=== PATIENT | female | born 1955 | race Caucasian/White ===

== ENCOUNTER 2016-11-04 09:51 | Outpatient (CLI) | payer OTHER | END 2016-11-04 09:52 | disposition home or self-care (01) | DX: Z12.31 Encounter for screening mammogram for malignant neoplasm of breast (principal) ==

== ENCOUNTER 2018-07-16 09:43 | Outpatient (CLI) | payer OTHER ==
--- NOTE | 2018-07-16 11:06 | XRAY Report ---
Reason: CHRONIC CERVICALGIA Procedure Date: 07/16/2018 Accession Number: [id number] / [id number] Procedure: XR - Cervical Spine Complete CPT Code: FULL RESULT: EXAM: CERVICAL SPINE RADIOGRAPHY EXAM DATE: 07/16/2018 10:25 AM. CLINICAL HISTORY: Chronic cervicalgia. COMPARISONS: None. TECHNIQUE: 5 views. FINDINGS: Alignment: Normal. No spondylolisthesis or scoliosis. Bones: The cervical vertebral bodies and posterior elements are well-visualized from the skull base through C7-T1. No fractures or bone lesions. Disks: There is loss of disk space height at C5-C7. Facets: No degenerative disease. Neural Foramina: The neural foramina have bony patency bilaterally. Soft Tissues: Normal. No prevertebral soft tissue swelling. The visualized lung apices are clear. IMPRESSION: Mild degenerative changes. RADIA
--- NOTE | 2018-07-16 11:09 | XRAY Report ---
Reason: CHRONIC CERVICALGIA Procedure Date: 07/16/2018 Accession Number: [id number] / [id number] Procedure: XR - Thoracic Spine 2 View CPT Code: FULL RESULT: EXAM: THORACIC SPINE RADIOGRAPHY EXAM DATE: 07/16/2018 10:25 AM. CLINICAL HISTORY: Chronic cervicalgia. COMPARISON: None. TECHNIQUE: 2 views. FINDINGS: Alignment: Mild thoracic kyphosis. Bones: No fractures or bone lesions. Disks: Normal. Disk heights are maintained. Soft Tissues: Normal. The visualized lungs and cardiomediastinal silhouette are normal. IMPRESSION: Mild thoracic kyphosis without focal compression fracture. RADIA
== END 2018-07-16 09:44 | disposition home or self-care (01) ==
LOC: DI 09:43
PROVIDERS: ATTEND Nurse Practitioner Family
DX: M50.322 Other cervical disc degeneration at C5-C6 level (principal); M40.204 Unspecified kyphosis, thoracic region
CPT/HCPCS: 72050; 72070

== ENCOUNTER 2020-08-25 14:49 | Outpatient (CLI) | payer OTHER ==
--- NOTE | 2020-08-26 10:06 | Mammography Report ---
BILATERAL DIGITAL SCREENING MAMMOGRAM 3D/2D WITH EXAGGERATED CC: 08/25/2020 CLINICAL: Routine screening. Routine screening. Comparison is made to exams dated: 11/04/2016 mammogram - [facility], 08/21/2015 [facility], 08/12/2014 mammogram, and 08/13/2013 mammogram - [facility]. The tissue of both breasts is predominantly fatty. There is a stable benign focal asymmetry in the right breast. No significant masses, calcifications, or other findings are seen in either breast. There has been no significant interval change. IMPRESSION: BENIGN There is no mammographic evidence of malignancy. A 1 year screening mammogram is recommended. This exam was interpreted at Station ID: [id number]. NOTE: For mammograms, a report in lay terms will be sent to the patient. Approximately 15% of breast malignancies will not be visualized mammographically. In the management of a palpable breast mass, a negative mammogram must not discourage biopsy of a clinically suspicious lesion. Electronically Signed By: Madi Cruz acr/penrad:08/25/2020 16:35:18 ACR BI-RADS Category 2: Benign Finding(s) 3342F PARENCHYMAL PATTERN: (F) - The breast(s) demonstrate(s) diffuse fatty replacement. BI-RADS CATEGORY: (2) - 2 RECOMMENDATION: (ANNUAL) - Recommend routine annual screening mammography. [id number] 1 year screening LATERALITY: (B)
== END 2020-08-25 14:50 | disposition home or self-care (01) ==
LOC: DI.S 14:49
PROVIDERS: ATTEND Nurse Practitioner Family
DX: Z12.31 Encounter for screening mammogram for malignant neoplasm of breast (principal)

== ENCOUNTER 2020-08-28 12:42 | Outpatient (CLI) | payer OTHER ==
--- NOTE | 2020-08-28 13:29 | XRAY Report ---
PROCEDURE: Shoulder 3 View LT INDICATIONS: LEFT SHOULDER PAIN TECHNIQUE: 3 views of the shoulder were acquired. COMPARISON: None. FINDINGS: No fracture. Anatomic alignment. Scattered subchondral sclerosis and spurring. Soft tissues: No torrez spicious soft tissue calcifications. IMPRESSION: Degenerative changes as above. If the patient's pain or other symptoms persist, consider further evaluation with MRI. Reviewed by: Tito Armstrong MD on 08/28/2020 1:28 PM [facility] Approved by: Tito Armstrong MD on 08/28/2020 1:28 PM [facility] Station ID: [id number]
== END 2020-08-28 12:43 | disposition home or self-care (01) ==
LOC: DI.S 12:42
PROVIDERS: ATTEND Nurse Practitioner Family
DX: M25.512 Pain in left shoulder (principal); M19.012 Primary osteoarthritis, left shoulder